=== PATIENT | male | born 1990 | race American Indian/Alaskan Native ===

== ENCOUNTER 2018-01-06 11:03 | Day surgery (SDC) | payer MEDICAID ==
[~2018-01-06] VITALS: Ht 182.9 cm; Wt 88.1 kg
[2018-01-06] VITALS (10 sets, daily range): BP systolic 124–140; BP diastolic 72–92
[~2018-01-06 11:03] MED LIST: BUPIVAcaine/PF 2.5mg/ml (0.25%) 10ml vial ONE; Cefazolin 2GM/50ML dext iso,osmotic IVPB IV ONE; NO HOME MEDS; famotidine 20mg tablet PO ONE; ringers solution, lacted 1,000 ML IV SCH
[2018-01-06] MEDS ORDERED: LIDOcaine 1% (10mg/ml) 2ml vial ONE (11:41)
[2018-01-06] MEDS ORDERED: ROPIVAcaine 0.5% (5mg/ml) 30ml vial ONE (12:44)
[2018-01-06] MEDS ORDERED: cloNIDine hcl/PF 100mcg/ml inj ONE (12:44)
[2018-01-06] MEDS ORDERED: ringers solution, lacted 1,000 ML IV SCH (12:47)
[2018-01-06] MEDS ORDERED: sevoflurane 250ml liquid IH ONE (12:48)
[2018-01-06] MEDS ORDERED: fentaNYL/PF 50MCG/1 ML 2ML syringe ONE (12:49)
[2018-01-06] MEDS ORDERED: ondansetron/PF 4mg/2ml inj IV PRN (12:50)
[2018-01-06] MEDS ORDERED: midazolam 2 mg/2 ml injection ONE (12:50)
[2018-01-06] MEDS ORDERED: proCHLORperazine 10 MG/2 ml inj IV PRN (12:50)
[2018-01-06] MEDS ORDERED: meperidine/PF 25mg/ml syringe IV PRN ×2 (12:50)
[2018-01-06] MEDS ORDERED: morphine 4 MG/ML inj SYRINge IV PRN ×2 (12:50)
[2018-01-06] MEDS ORDERED: propofol inj 20 ML IV ONE (13:53)
[2018-01-06] MEDS: meperidine/PF 25mg/ml syringe IV PRN ×2 (14:21→14:40)
== END 2018-01-06 15:20 | disposition home or self-care (01) ==
LOC: PAS 11:03
PROVIDERS: ATTEND Orthopaedic Surgery Hand Surgery
DX: S52.551A Other extraarticular fracture of lower end of right radius, initial encounter for closed fracture (principal); G56.01 Carpal tunnel syndrome, right upper limb; Z79.891 Long term (current) use of opiate analgesic; Z72.89 Other problems related to lifestyle; W13.2XXA Fall from, out of or through roof, initial encounter; Y93.89 Activity, other specified; Y92.89 Other specified places as the place of occurrence of the external cause; Y99.8 Other external cause status
CPT/HCPCS: 25608; 64721; A4565; A6258; A6449; C1713; J0690; J0735; J2175; J2250; J2270; J2704; J2795; J3010; J3490; J7120; A7000